=== PATIENT | female | born 1960 | race Caucasian/White ===

== ENCOUNTER 2024-12-11 09:41 | Inpatient (IN) | payer MEDICARE, BC ==
--- NOTE | 2024-12-11 09:55 | ED ---
Fall HPI - General Chief Complaint: Fall Stated Complaint: hip fracture Time Seen by Provider: 12/11/24 09:54 Source: patient, EMS, RN notes reviewed Mode of arrival: EMS - History of Present Illness Initial Comments: 64-year-old female with history of osteoporosis presenting to emergency department via EMS for concerns of left hip pain. States that while she was at work this morning she tripped over her feet causing her to fall onto her left hip. Patient denies hitting her head or loss conscious at the time of the injury. States that she does not remember standing up however has been having severe pain while putting pressure onto the left leg. Denies blood thinner use. States that the pain is currently rated as an 8 out of 10. Denies other injuries at the time of the fall. - Related Data Allergies Allergy/AdvReac Type Severity Reaction Status Date / Time No Known Allergies Allergy Verified 12/11/24 09:54 Review of Systems ROS Statement: Those systems with pertinent positive or pertinent negative responses have been documented in the HPI. ROS Other: All systems not noted in ROS Statement are negative. Past Medical History Past Medical History: COPD Additional Past Medical History / Comment(s): OP Past Surgical History: No Surgical Hx Reported Past Psychological History: No Psychological Hx Reported Smoking Status: Former smoker Past Alcohol Use History: Occasional Past Drug Use History: Marijuana General Exam Limitations: no limitations Eye exam: Present: normal appearance, PERRL, EOMI. Absent: scleral icterus, conjunctival injection, periorbital swelling Neck exam: Present: normal inspection. Absent: tenderness, meningismus, lymphadenopathy Respiratory exam: Present: normal lung sounds bilaterally. Absent: respiratory distress, wheezes, rales, rhonchi, stridor Cardiovascular Exam: Present: regular rate, normal rhythm, normal heart sounds. Absent: systolic murmur, diastolic murmur, rubs, gallop, clicks GI/Abdominal exam: Present: soft, normal bowel sounds. Absent: distended, tenderness, guarding, rebound, rigid Left Hip exam: Present: tenderness. Absent: full ROM, swelling, erythema Neurovascular tendon exam: Present: no vascular compromise Gait: not tested/not observed Back exam: Present: normal inspection Neurological exam: Present: alert, oriented X3, CN II-XII intact Skin exam: Present: warm, dry, intact, normal color. Absent: rash Course Vital Signs 12/11/24 12/11/24 09:43 10:18 Temperature 98.2 F 97.8 F Pulse Rate 56 L 63 Respiratory 18 18 Rate Blood Pressure 158/93 149/79 O2 Sat by Pulse 95 96 Oximetry Medical Decision Making - Medical Decision Making Was pt. sent in by a medical professional or institution (FELIPA Nicolas, GEAR MILLING MACHINE SET UP OPERATOR, urgent care, hospital, or fci...) When possible be specific @ -No Did you speak to anyone other than the patient for history (EMS, parent, family, police, friend...)? What history was obtained from this source @ -No Did you review nursing and triage notes (agree or disagree)? Why? @ -I reviewed and agree with nursing and triage notes Were old charts reviewed (outside hosp., previous admission, EMS record, old EKG, old radiological studies, urgent care reports/EKG's, fci records)? Report findings @ -No old charts were reviewed Differential Diagnosis (chest pain, altered mental status, abdominal pain women, abdominal pain men, vaginal bleeding, weakness, fever, dyspnea, syncope, headache, dizziness, GI bleed, back pain, seizure, CVA, palpatations, mental health, musculoskeletal)? @ -Differential Musculoskeletal Muscular strain, contusion, ligament sprain, fracture, arthritis, septic arthritis, bursitis, cellulitis, muscle spasm, nerve compression, DVT, arterial occlusion, herpes zoster, electrolyte abnormality, tumor.... This is not meant to be in all inclusive list EKG interpreted by me (3pts min.). @ -completed at 1150, sinus bradycardia with a ventricular rate of 55, AL interval 167, QRS 98, QT 470, QTc 460. X-rays interpreted by me (1pt min.). @ -X-ray of the left hip and AP pelvis reveals a displaced intertrochanteric fracture of the left hip Chest x-ray no acute process CT interpreted by me (1pt min.). @ -None done U/S interpreted by me (1pt. min.). @ -None done What testing was considered but not performed or refused? (CT, X-rays, U/S, labs)? Why? @ -None What meds were considered but not given or refused? Why? @ -None Did you discuss the management of the patient with other professionals (professionals i.e. FELIPA Nicolas, GEAR MILLING MACHINE SET UP OPERATOR, lab, RT, psych nurse, home health care social worker, water and sewer systems supervisor, teacher, national insurance officer, protective services case worker)? Give summary @ -Spoke with on-call rn orthopedic, Liu Nolen ([facility]AR), who spoke with his attending was agreed to admit the patient with general medicine consult for surgical clearance. Will plan for surgery tomorrow. Was smoking cessation discussed for >3mins.? @ -No Was critical care preformed (if so, how long)? @ -No Were there social determinants of health that impacted care today? How? (Homelessness, low income, unemployed, alcoholism, drug addiction, transportation, low edu. Level, literacy, decrease access to med. care, residential, rehab)? @ -No Was there de-escalation of care discussed even if they declined (Discuss DNR or withdrawal of care, Hospice)? DNR status @ -No What co-morbidities impacted this encounter? (DM, HTN, Smoking, COPD, CAD, Cancer, CVA, ARF, Chemo, Hep., AIDS, mental health diagnosis, sleep apnea, morbid obesity)? @ -None Was patient admitted / discharged? Hospital course, mention meds given and route, prescriptions, significant lab abnormalities, going to OR and other pertinent info. @ -Admitted. 64-year-old female presenting to emergency department via EMS for complaints of a fall and left hip pain. Unable to assess full range of motion due to patient's pain. Neurovascularly intact of the left lower extremity. Patient evaluate dose of Dilaudid for pain control. X-ray of the left hip and AP pelvis reveals a fracture of the intertrochanteric fracture. Chest x-ray is unremarkable. Patient admitted to orthopedics with general medicine on consult. As needed pain medications ordered. Case has been discussed with my attending Dr. Greene Undiagnosed new problem with uncertain prognosis? @ -No Drug Therapy requiring intensive monitoring for toxicity (Heparin, Nitro, Insulin, Cardizem)? @ -No Were any procedures done? @ -No Diagnosis/symptom? @ -intertrochanteric fracture of left hip Acute, or Chronic, or Acute on Chronic? @ -acute Uncomplicated (without systemic symptoms) or Complicated (systemic symptoms)? @ -uncomplicated Side effects of treatment? @ -No Exacerbation, Progression, or Severe Exacerbation? @ -No Poses a threat to life or bodily function? How? (Chest pain, USA, DC, pneumonia, PE, COPD, DKA, ARF, appy, cholecystitis, CVA, Diverticulitis, Homicidal, Suic idal, threat to staff... and all critical care pts) @ -No Disposition Clinical Impression: Intertrochanteric fracture of left hip Disposition[facility] Condition: Stable Decision to Admit Reason: Admit from EC Decision Date: 12/11/24 Decision Time: 11:20
[2024-12-11] MEDS: HYDROmorphone 0.5 MG/0.5 ML SYRINGE IVP STA (10:15)
--- NOTE | 2024-12-11 10:48 | XR ---
EXAMINATION TYPE: XR chest 1V DATE OF EXAM: 12/11/2024 COMPARISON: NONE CLINICAL INDICATION: Female, 64 years old with history of LEFT HIP FX; TECHNIQUE: Single frontal view of the chest is obtained. FINDINGS: There is no focal air space opacity, pleural effusion, or pneumothorax seen. The cardiac silhouette size is within normal limits. The osseous structures are intact. IMPRESSION: No acute process. [facility], Workstation: [email or web address] 12/11/2024 10:46 AM
--- NOTE | 2024-12-11 10:48 | XR ---
EXAMINATION TYPE: XR Hip LT and AP Pelvis DATE OF EXAM: 12/11/2024 COMPARISON: NONE CLINICAL INDICATION: Female, 64 years old with history of fall, pain; TECHNIQUE: A single AP view of the pelvis is obtained. Two views of the left hip are obtained. FINDINGS: There is a markedly displaced intertrochanteric fracture of the left hip. There is no left hip disloc ation. Right hip is intact. There is no fracture of the pelvis. IMPRESSION: Displaced intertrochanteric fracture of the left hip. [facility], , 12/11/2024 10:46 AM
[2024-12-11] MEDS ORDERED: IBUPROFEN 400 MG TAB PO PRN (11:09)
[2024-12-11] MEDS ORDERED: NALOXONE 0.4 MG/ML 1 ML VIAL IV PRN (11:09)
[2024-12-11] MEDS ORDERED: ACETAMINOPHEN TAB 325 MG TAB PO PRN (11:09)
[2024-12-11] MEDS: KETOROLAC 15 MG/ML 1 ML VIAL IVP STA (11:16)
[2024-12-11] MEDS: SODIUM CHLORIDE 0.9% 1,000 ML IV SCH (11:19)
[2024-12-11 11:54] LABS: Basophils # (A) 0.04 10*3/uL (0.00-0.10); Basophils % (A) 0.4 %; Eosinophils # (A) 0.08 10*3/uL (0.04-0.35); Eosinophils % (A) 0.7 %; HCT 39.2 % (37.2-46.3); HGB 13.3 g/dL (12.0-15.0); Lymphocytes # (A) 1.38 10*3/uL (0.90-5.00); Lymphocytes % (A) 12.5 %; MCH 29.4 pg (27.0-32.0); MCHC 33.9 g/dL (32.0-37.0); MCV 86.5 fL (80.0-97.0); Mean Platelet Volume 9.2 fL (9.5-12.2); Monocytes % (A) 5.4 %; Neutrophils # (A) 8.86 10*3/uL (1.80-7.70); Neutrophils % (A) 80.5 %; Platelet Count 258 10*3/uL (140-440); RBC 4.53 10*6/uL (4.10-5.20); RDW 13.7 % (11.5-14.5); WBC 11.01 10*3/uL (4.50-10.00)
[2024-12-11 12:06] LABS: ALT 33 U/L (4-34); AST 32 U/L (14-36); African American GFR (CKD) >90 (>60 ml/min/1.73 sqM); Albumin 4.1 g/dL (3.5-5.0); Alkaline Phosphatase 66 U/L (38-126); Anion Gap 8 mmol/L; Blood Urea Nitrogen 13 mg/dL (7-17); Calcium 9.2 mg/dL (8.4-10.2); Carbon Dioxide 24 mmol/L (22-30); Chloride 107 mmol/L (98-107); Glucose 131 mg/dL (74-99); Non-African American GFR(CKD) >90 (>60 ml/min/1.73 sqM); Potassium 3.9 mmol/L (3.5-5.1); Sodium 139 mmol/L (137-145); Total Bilirubin 1.4 mg/dL (0.2-1.3); Total Protein 6.6 g/dL (6.3-8.2)
[2024-12-11 12:09] LABS: INR 0.9 (<1.2)
[2024-12-11 12:10] LABS: Prothrombin Time 10.4 sec (10.0-12.5)
--- NOTE | 2024-12-11 12:10 | P.HPOR ---
History of Present Illness H&P Date: 12/11/24 Chief Complaint: Left femur fracture Patient is a 64-year-old female who was brought to [facility] after falling today while at work. Patient fell after tripping over something and landed on her left side. She was unable to weight-bear due to pain in the l eft hip area. Patient was brought to hospital by EMS, she underwent multiple imaging and lab test, images demonstrated a displaced left intertrochanteric femur fracture. Our orthopedic team was contacted regarding the patient. Patient was admitted under our care with plan for surgical intervention, internal medicine was placed on consult for medical management. Patient was evaluated today in the ER, she is resting comfortably. She notes most pain in the left hip with movement. She denies any right lower extremity pain, she denies any bilateral upper extremity pain. She denies any numbness or tingling to the bilateral upper or lower extremities. She denies any loss of bowel or bladder function. She denies any fevers or chills currently. Patient denies any previous surgery to the left hip. Review of Systems Constitutional: Reports as per HPI Past Medical History Past Medical History: COPD Additional Past Medical History / Comment(s): OP Past Surgical History: No Surgical Hx Reported Past Psychological History: No Psychological Hx Reported Smoking Status: Former smoker Past Alcohol Use History: Occasional Past Drug Use History: Marijuana Medications and Allergies Allergies Allergy/AdvReac Type Severity Reaction Status Date / Time No Known Allergies Allergy Verified 12/11/24 09:54 Physical Examination Left lower extremity: Obvious shortening and external rotation of the extremity when compared to the contralateral side No open lesions or sores are visualized, no areas of erythema. Mild ecchymosis and swelling present to the proximal femur Calf is soft, no tenderness with palpation. She is nontender in the lower leg, foot or ankle. She is tender with palpation noted to the proximal femur Range of motion of the hip was very difficult, straight leg raise was unable to be done, logroll maneuver reproduce pain. Knee extension and flexion were intact but do reproduce pain in the hip region. plantarflexion, dorsiflexion, EHL, FHL are intact Sensory exam to light touch is intact throughout the extremity, dorsalis pedis pulses 2+ Results - Labs Labs: Abnormal Lab Results - Last 24 Hours (Table) 12/11/24 12/11/24 Range/Units 11:41 11:41 WBC 11.01 H (4.50-10.00) 10*3/uL MPV 9.2 L (9.5-12.2) fL Immature Gran # 0.05 H (0.00-0.04) 10*3/uL Neutrophils # 8.86 H (1.80-7.70) 10*3/uL Glucose 131 H (74-99) mg/dL Total Bilirubin 1.4 H (0.2-1.3) mg/dL H & H 12/11/24 Range/Units 11:41 Hgb 13.3 (12.0-15.0) g/dL Hct 39.2 (37.2-46.3) % Result Diagrams: 12/11/24 11:41 12/11/24 11:41 - Diagnostic results Hip x-ray: report reviewed, image reviewed (Pelvis and left hip x-rays were reviewed. Displaced left intertrochanteric femur fracture is noted. No other acute osseous abnormalities appreciated) Assessment and Plan Assessment: Displaced left intertrochanteric femur fracture Status post fall from standing Other medical comorbidities Plan: I was able to discuss the case, this to include physical exam findings and imaging studies and my attending Dr. Shafer. We are recommending surgical intervention, more specifically close reduction with intramedullary nailing of the left femur. Planning for surgery for 12/12/2024 Risk and benefits of the procedure were discussed with the patient, this to include but not exclude infection, blood loss, development of blood clot, neurovascular injury, pain and stiffness, inadequate healing of bone/soft tissue, need for subsequent surgery. Patient is in good understanding and would like to proceed. Consent will be obtained prior to procedure N.p.o. after midnight Pain control, oral and IV medication as needed Nonweightbearing left lower extremity at this time PT/OT evaluation after surgery Internal medicine recommendations appreciated Further recommendations to follow Time with Patient: Less than 30
[2024-12-11 12:18] LABS: Partial Thromboplastin Time 21.3 sec (22.0-30.0)
[2024-12-11 13:08] LABS: Appearance,Urine Clear (Clear); Bilirubin,Urine Negative (Negative); Blood,Urine Negative (Negative); Color,Urine Yellow; Glucose,Urine (UA) Negative (Negative); Ketones,Urine 2+ (Negative); Leukocyte Esterase,Urine Negative (Negative); Nitrite,Urine Negative (Negative); PH, Urine 5.5 (5.0-8.0); Protein,Urine Trace (Negative); Specific Gravity,Urine 1.027 (1.001-1.035); Urobilinogen,Urine <2.0 mg/dL (<2.0)
[2024-12-11] MEDS: HYDROmorphone 0.5 MG/0.5 ML SYRINGE IVP PRN (15:45)
[2024-12-11] MEDS: ONDANSETRON 4 MG/2 ML VIAL IVP PRN (16:10)
[2024-12-11] MEDS: HYDROcodone/APAP 7.5-325MG 1 EACH TAB PO PRN (17:03)
[2024-12-11] MEDS: CYCLOBENZAPRINE 10 MG TAB PO PRN (17:03)
[2024-12-11] MEDS ORDERED: ALBUTEROL NEBULIZED 2.5 MG/3 ML INHALATION PRN (17:34)
[2024-12-11] MEDS: amLODIPine 10 MG TAB PO SCH (17:44)
[2024-12-11] MEDS: PANTOPRAZOLE 40 MG TABLET PO SCH (17:44)
--- NOTE | 2024-12-12 02:39 | CONS ---
CONSULTATION REASON FOR CONSULTATION: Preoperative clearance requested by Surgery. HISTORY OF PRESENT ILLNESS: This 64-year-old woman with a past medical history of mild COPD, history of nicotine dependence, being followed by Dr. Zeina Aguilar. The patient apparently had a fall and the patient suffered a displaced left intertrochanteric femur fracture. Surgical intervention planned for tomorrow. There is no history of any fever, rigors, chills at this time. PAST MEDICAL HISTORY: History of COPD, mild. MEDICATIONS: Fosamax. ALLERGIES: None. FAMILY HISTORY: No history of heart disease or strokes in the family. SOCIAL HISTORY: History of occasional alcohol, previous smoking. REVIEW OF SYSTEMS: Fourteen-point review of systems is negative except as mentioned earlier. PHYSICAL EXAMINATION: VITAL SIGNS: Pulse is 52, blood pressure 120/80, respirations 18. HEENT: Conjunctivae normal. NECK: No jugular venous distention. No carotid bruit. CARDIOVASCULAR: S1, S2 muffled. RESPIRATIONS: Breath sounds diminished at the bases. No rhonchi, no crackles. ABDOMEN: Soft, nontender. LEGS: Status post hip fracture. NERVOUS SYSTEM: Nonfocal. LABORATORY DATA: WBC 11. Rest of the labs are noted. ASSESSMENT: 1. Status post fall and left hip fracture. 2. Mild chronic obstructive pulmonary disease. 3. Mild hypertension. 4. Increased random blood sugar. 5. Remote history of nicotine dependence. RECOMMENDATIONS AND DISCUSSION: This 64-year-old woman presented with a fall. At this time, the patient is medically stable, I recommend Norvasc 5 mg p.o. daily and pain management. DVT prophylaxis. We will follow the patient closely with you and I would also recommend p.r.n. inhalers and further recommendations follow. The patient is cleared for surgery. MMODL / IJN: [id number] /
[2024-12-12 09:25] LABS: Basophils # (A) 0.02 X 10*3/uL (0.00-0.10); Basophils % (A) 0.2 %; Eosinophils # (A) 0.13 X 10*3/uL (0.04-0.35); Eosinophils % (A) 1.4 %; HCT 38.5 % (37.2-46.3); HGB 12.1 g/dL (12.0-15.0); Lymphocytes # (A) 1.92 X 10*3/uL (0.90-5.00); Lymphocytes % (A) 20.8 %; MCH 28.3 pg (27.0-32.0); MCHC 31.4 g/dL (32.0-37.0); MCV 90.2 FL (80.0-97.0); Monocytes # (A) 0.73 X 10*3/uL (0.20-1.00); Monocytes % (A) 7.9 %; NRBC Per 100 WBC 0 X 10*3/uL (0.00-0.01); Neutrophils # (A) 6.39 X 10*3/uL (1.80-7.70); Neutrophils % (A) 69.5 %; Platelet Count 259 X 10*3/uL (140-440); RBC 4.27 X 10*6/uL (4.10-5.20); RDW 14.2 % (11.5-14.5); WBC 9.21 X 10*3/uL (4.50-10.00)
[2024-12-12 09:43] LABS: ALT 64 U/L (8-44); AST 55 U/L (13-35); Albumin 3.9 g/dL (3.8-4.9); Albumin/Globulin Ratio 2.05 Ratio (1.60-3.17); Alkaline Phosphatase 68 U/L (41-126); Blood Urea Nitrogen 10.5 mg/dL (9.0-27.0); Calcium 8.8 mg/dL (8.7-10.3); Carbon Dioxide 23.4 mmol/L (21.6-31.8); Chloride 106 mmol/L (96-109); Globulin 1.9 g/dL (1.6-3.3); Glucose 127 mg/dL (70-110); Potassium 4.1 mmol/L (3.5-5.5); Sodium 140 mmol/L (135-145); Total Bilirubin 1.7 mg/dL (0.3-1.2); Total Protein 5.8 g/dL (6.2-8.2)
[2024-12-12] MEDS: IV FLUID CONTINUATION 1,000 ML IV ONE ×2 (09:43→11:32)
[2024-12-12] MEDS ORDERED: PROPOFOL 10 MG/ML 20 ML VIAL IV ONE (10:01)
[2024-12-12] MEDS ORDERED: KETAMINE HCL IN 0.9 % NACL 50 MG/5 ML SYRINGE ONE (10:01)
[2024-12-12] MEDS ORDERED: fentaNYL (PF) 50 MCG/ML 2 ML AMP ONE (10:01)
[2024-12-12] MEDS ORDERED: MIDAZOLAM 2 MG/2 ML VIAL ONE (10:01)
[2024-12-12] MEDS ORDERED: GLYCOPYRROLATE 0.2 MG/ML 2 ML VIAL ONE (10:01)
--- NOTE | 2024-12-12 11:19 | P.OP ---
Date of Procedure: 12/12/24 Preoperative Diagnosis: Left hip displaced intertrochanteric fracture Postoperative Diagnosis: Left hip displaced intertrochanteric fracture Procedure(s) Performed: Intramedullary nailing left hip trochanteric fracture Implants: Synthes 11 mm / 130 degree titanium cannulated TFNA/170 mm, Synthes 95 mm helical blade, Synthes 5.0 locking screw 34 mm Anesthesia: spinal Surgeon: Theo Shafer Test Baker #1: Jurgen Nolen Estimated Blood Loss (ml): 25 Pathology: none sent Condition: stable Disposition: PACU Indications for Procedure: 64-year-old patient who was seen with a displaced left hip intertrochanteric fracture. I discussed intramedullary nailing. Patient was agreeable and consent regarding the procedure was obtained. Operative Findings: See description of procedure Description of Procedure: Patient was taken to the operative suite. She underwent a spinal anesthetic by the department of anesthesia. She was not transferred to the [place] table. She was given preoperative IV antibiotics. The left lower extremity placed in standard longitudinal traction with adduction and internal rotation. The right lower extremity space well-padded well leg mayo. The C-arm was brought to the operative field confirming adequate reduction of the fracture. The C-arm was now pulled back. The left hip and lower extremity were now prepped and draped in a normal sterile orthopedic fashion. I now brought the C-arm back to the operative field. I again confirmed adequate reduction of the fracture both under AP and lateral intraoperative imaging. I made an incision measuring about 4 cm just proximal to the greater trochanter in line with the femur sharply through skin. I dissected down to the IT band and made a partial incision through that as well. I now placed a guidewire along the tip of the greater trochanter and introduced it into the intramedullary canal I confirmed this on AP and lateral intraoperative imaging. I placed a soft tissue protector and reamed out the proximal aspect of the greater trochanter. I now chose a Synthes 11 mm 130 degree angle titanium TF and a 170 mm trochanteric nail. Utilizing the outrigger introduced into the femur and tapped it down appropriately confirming adequate alignment on intraoperative fluoroscopy. I now placed the head neck complex guide through the outrigger made an incision through the skin and placed along the proximal lateral aspect of the femur confirming adequate position on AP and lateral intraoperative imaging. The guidewire was now placed into the head neck complex I again confirmed this under direct fluoroscopy both under AP and lateral intraoperative imaging. I now placed a reamer over the guidewire and then introduced our helical screw tapping it down until it was flush and secure. I locked the screw in position proximally. We now introduced our distal nail screw hole guide main incision through the skin and secured along the lateral aspect of the femur confirmed that on imaging. We drilled through the distal locking screw and introduced a 34 mm 5.0 screw with good fixation noted. The outrigger was now removed. We confirmed good reduction and good placement our fixation of both under AP and lateral intraoperative imaging. The C-arm was pulled back. The wounds were irrigated copiously with saline solution. The proximal IT band was repaired with #1 Vicryl. All incision subcutaneous soft tissues were repaired with 2-0 Vicryl. The skin was repaired with skin jose juan. Sterile dressings were applied. The patient was transferred to a bed in recovery in stable condition. Liu LEO assisted in all aspects of this procedure.
[2024-12-12] MEDS ORDERED: HYDROmorphone 0.5 MG/0.5 ML SYRINGE IVP PRN ×2 (11:20)
[2024-12-12] MEDS ORDERED: NALOXONE 0.4 MG/ML 1 ML VIAL IV PRN (11:20)
--- NOTE | 2024-12-12 11:41 | XR ---
Left hip. HISTORY: Left hip fracture. COMPARISON: 12/11/2024. TECHNIQUE: 56.4 seconds of fluoroscopy and 2 spot films were obtained demonstrating placement of a tr ansfemoral neck screw with intramedullary rianna in the proximal left femur. FINDINGS: Open reduction internal fixation of a left intertrochanteric fracture. There is near anatomic alignme nt. IMPRESSION: Fluoroscopic spot films and fluoroscopy for fixation of a left hip fracture as described above. [facility], Workstation: [id number] 12/12/2024 11:39 AM
--- NOTE | 2024-12-12 11:43 | FL ---
Fluoroscopic guidance operating room. HISTORY: Left hip fracture fixation. COMPARISON: None. Findings and impression: 54.4 seconds of fluoroscopy was provided for fixation of a intertrochanteric fracture of the left hip . [facility], Workstation: [email or web address] 12/12/2024 11:40 AM
[2024-12-12] MEDS: MULTIVITAMINS, THERA 1 EACH TAB PO SCH (12:26)
[2024-12-12 14:38] LABS: Basophils # (A) 0.04 10*3/uL (0.00-0.10); Basophils % (A) 0.4 %; Eosinophils # (A) 0.08 10*3/uL (0.04-0.35); Eosinophils % (A) 0.7 %; HCT 36.2 % (37.2-46.3); HGB 11.6 g/dL (12.0-15.0); Lymphocytes # (A) 1.35 10*3/uL (0.90-5.00); Lymphocytes % (A) 12.1 %; MCH 29.3 pg (27.0-32.0); MCV 91.4 fL (80.0-97.0); Mean Platelet Volume 9.6 fL (9.5-12.2); Monocytes # (A) 0.64 10*3/uL (0.20-1.00); Monocytes % (A) 5.7 %; Neutrophils # (A) 9.02 10*3/uL (1.80-7.70); Neutrophils % (A) 80.7 %; Platelet Count 216 10*3/uL (140-440); RBC 3.96 10*6/uL (4.10-5.20); RDW 14.1 % (11.5-14.5); WBC 11.17 10*3/uL (4.50-10.00)
[2024-12-12] MEDS: ceFAZolin 2 GM in DEXTROSE 5% IN WATER 50 ML IVPB SCH (15:53)
[2024-12-12] MEDS: HYDROmorphone 0.5 MG/0.5 ML SYRINGE IVP PRN (15:54)
[2024-12-12] MEDS: ASPIRIN 81 MG PO SCH (20:57)
[2024-12-12] MEDS: HYDROcodone/APAP 5-325MG 1 EACH TAB PO PRN (20:57)
--- NOTE | 2024-12-13 04:52 | PN ---
PROGRESS NOTE DATE OF SERVICE: 12/12/2024 SUBJECTIVE: This 64-year-old woman, admitted after a fall and left hip fracture, underwent intramedullary nailing of the left hip fracture. There is no history of any fever, rigors, or chills. OBJECTIVE: VITAL SIGNS: Pulse is 68, blood pressure 143/84. CHEST: Clear to auscultation. ABDOMEN: Soft, nontender. LEGS: Status post surgery. LABORATORY DATA: Reviewed. ASSESSMENT: 1. Left hip displaced intertrochanteric fracture, status post intramedullary nailing. 2. Fall. 3. Mild chronic obstructive pulmonary disease. 4. Hypertension. 5. Increased random blood sugar. 6. Remote history of nicotine dependence. RECOMMENDATIONS AND DISCUSSION: Recommend to continue current management. To continue symptomatic treatment. DVT prophylaxis. Closely follow with Orthopedic Surgery. Further recommendations to follow. MMODL / IJN: [id number] /
[2024-12-13] MEDS: hydrOXYzine pamoate 25 MG CAP PO PRN (04:58)
[2024-12-13] MEDS ORDERED: ASPIRIN 81 MG PO SCH (09:00)
--- NOTE | 2024-12-13 12:16 | P.PN ---
Subjective Progress Note Date: 12/13/24 Principal diagnosis: Status post intramedullary nail left hip Patient evaluated at bedside, resting comfortably in her hospital chair. She has been up into the bathroom on a couple occasions. She does have discomfort in the left lower extremity and heaviness when she attempts to lift it. Denies headaches, lightheadedness, chest pain or shortness of breath. She has had no f lizett or chills at this time. Objective - Vital Signs Vital signs: Vital Signs Temp 98.3 F 12/13/24 07:17 Pulse 82 12/13/24 07:17 Resp 16 12/13/24 07:17 BP 124/65 12/13/24 07:17 Pulse Ox 95 12/13/24 09:41 FiO2 Intake & Output 12/12/24 12/13/24 12/13/24 18:59 06:59 18:59 Intake Total 1000 240 Output Total 145 Balance 855 240 Intake: IV 1000 Oral 240 Output: Urine 120 Estimated Blood Loss 25 Other: Voiding Method External Catheter External Catheter Toilet # Voids 2 2 - Exam Left lower extremity: Postop bandages are in good position condition, mild ecchymosis and swelling to the extremity. Calf is soft, no tenderness with palpation. Plantarflexion, dorsiflexion, EHL, FHL are intact. Sensory exam to light touch is intact throughout the extremity, dorsalis pedis pulses 2+ - Labs CBC & Chem 7: 12/12/24 14:17 12/12/24 02:52 Labs: Abnormal Lab Results - Last 24 Hours (Table) 12/12/24 Range/Units 14:17 WBC 11.17 H (4.50-10.00) 10*3/uL RBC 3.96 L (4.10-5.20) 10*6/uL Hgb 11.6 L (12.0-15.0) g/dL Hct 36.2 L (37.2-46.3) % Neutrophils # 9.02 H (1.80-7.70) 10*3/uL Assessment and Plan Assessment: Postop day #1 status post IM nail left intertrochanteric femur fracture Displaced left intertrochanteric femur fracture Status post fall from standing Other medical comorbidities Plan: Pain control, oral and IV medication as needed Weight-bear as tolerated, utilize walker at all time Encourage incentive spirometer PT/OT DVT prophylaxis, continue current medications Internal medicine recommendations appreciated Discharge planning: Planning for discharge to home with home health care on 12/14/2024 Time with Patient: Less than 30
--- NOTE | 2024-12-13 16:07 | PN ---
PROGRESS NOTE DATE OF SERVICE: 12/13/2024 SUBJECTIVE: This 64-year-old woman who was admitted after hip fracture is improving. No chest pain. No palpitation. OBJECTIVE: VITAL SIGNS: Pulse 89, blood pressure 119/64, and respirations 16. CHEST: Clear to auscultation. CARDIOVASCULAR: S1, S2. ABDOMEN: Soft. NERVOUS SYSTEM: Nonfocal LABORATORY DATA: WBC 11.7. The labs are noted. ASSESSMENT: 1. Status post left hip fracture and intramedullary nailing. 2. Fall. 3. Mild chronic obstructive pulmonary disease. 4. Hypertension. 5. Increased random blood sugar. 6. Remote history of nicotine dependence. RECOMMENDATIONS: Recommend to continue current management and symptomatic treatment. Continue with the DVT prophylaxis, pain management. Further recommendations to follow. MMODL / IJN: [id number] /
--- NOTE | 2024-12-14 07:00 | XR ---
EXAMINATION TYPE: XR chest 1V portable DATE OF EXAM: 12/14/2024 CLINICAL INDICATION: Female, 64 years old with history of sob, cough, progress study. TECHNIQUE: Single AP portable upright view of the chest is obtained. COMPARISON: Chest x-ray from 3 days earlier FINDINGS: There is new linear opacity bilateral lower lungs likely reflecting atelectasis. Upper mark gs are clear. Cardiac silhouette size stable and within normal limits. The osseous structures are int act. IMPRESSION: New Bibasilar linear opacities or atelectasis. [facility], , 12/14/2024 6:58 AM
[2024-12-14 07:41] VITALS: BP 103/58; PULSE 78; RESP 17; TEMP 98.2
--- NOTE | 2024-12-14 09:01 | P.PN ---
Subjective Progress Note Date: 12/14/24 Principal diagnosis: Status post intramedullary nail left hip Patient evaluated at bedside, resting comfortably in her hospital chair. Patient is continue to progress well, her pain is well-controlled. She has been urinating with no issues, she is passing gas. Denies headaches, lightheadedness, chest pain or shortness of breath. She has had no fevers or chills at this time. Objective - Vital Signs Vital signs: Vital Signs Temp 98.2 F 12/14/24 07:40 Pulse 78 12/14/24 07:40 Resp 17 12/14/24 07:40 BP 103/58 12/14/24 07:40 Pulse Ox 94 L 12/14/24 07:40 FiO2 Intake & Output 12/13/24 12/14/24 12/14/24 18:59 06:59 18:59 Intake Total 1260 Output Total 600 Balance 660 Intake: Oral 1260 Output: Urine 600 Other: Voiding Method Toilet Toilet # Voids 2 2 - Exam Left lower extremity: Postop bandages are in good position condition, mild ecchymosis and swelling to the extremity. Calf is soft, no tenderness with palpation. Plantarflexion, dorsiflexion, EHL, FHL are intact. Sensory exam to light touch is intact throughout the extremity, dorsalis pedis pulses 2+ - Labs CBC & Chem 7: 12/12/24 14:17 12/12/24 02:52 Assessment and Plan Assessment: Postop day #2 status post IM nail left intertrochanteric femur fracture Displaced left intertrochanteric femur fracture Status post fall from standing Other medical comorbidities Plan: Pain control, plan for discharge home on [place] 7.5 mg / 325 mg Weight-bear as tolerated, utilize walker at all time Encourage incentive spirometer Home health care at discharge DVT prophylaxis, aspirin 81 mg twice a day for 30 days Internal medicine recommendations appreciated Discharge planning: Stable for discharge home today Time with Patient: Less than 30
--- NOTE | 2024-12-14 09:02 | P.DS ---
Providers Date of admission: 12/11/24 11:08 Expected date of discharge: 12/14/24 Attending physician: Theo Shafer Consults: 12/11/24 11:09 Consult Physician Routine Consulting Provider: Elisha Hu Consult Reason/Comments: medical clearance Do you want consulting provider notified?: Yes Primary care physician: Zeina Aguilar Hospital Course: Date of admission: 12/11/2024 Date of discharge: 12/14/2024 Admission diagnosis: Displaced left intertrochanteric femur fracture Discharge diagnosis: Status post IM nail left intertrochanteric femur fracture Attending physician: Dr. Shafer Surgical procedures: Intramedullary nail left femur fracture Brief history: Patient is a 64-year-old with a history of a fall resulting in a displaced left intertrochanteric femur fracture. At this point patient has failed conservative treatment measures and has opted to proceed with a elective intramedullary nail left femur fracture. Hospital course: Details of patient's surgery can be found in operative report. Patient tolerated the procedure well and was subsequently transported to orthopedic floor. Patient's orthopeidc and medical care was provided daily. Patient had daily laboratory tests performed for evaluation of overall blood counts. Patient had daily physical therapy to include strengthening range of motion as well as education with walker ambulation. Patient was treated with as for their postoperative DVT prophylaxis during their inpatient stay. Patient was noted to have a relatively uneventful postoperative course. Patient reported satisfactory pain control with oral pain medications by postoperative day 1. Patient showed satisfactory progress with physical therapy. Patient moved steadily through the program and had no difficulty meeting the goals by postoperative day 2. Given patient's otherwise satisfactory course and having met physical therapy goals, plan is to discharge patient home on postoperative day 2. Discharge condition/disposition: Patient will be discharged home in stable condition. Discharge medications: Instructions are given on resumption of patient's normal daily medications per primary care recommendation, in addition patient will be prescribed [place] 7.5 mg / 325 mg, Flexeril 10 mg, senna S, aspirin 81 mg. Discharge instructions: 1. Wound care and infection precautions, keep incision dry and covered while showering, no lotions, creams, moisturizers. No soaking, tubs, pools, hottubs. Do not scrub over the incision. 2. Weight-bear as tolerated with walker / cane until follow-up. 3. Ice and elevate when necessary. Do not exceed 20 minutes per hour with ice pack. 4. Utilize compression sleeve until seen at first follow up appointment. 5. Visiting nursing care. 6. Home physical therapy. 7. Pain meds and anticoagulants per prescription. 8. Pain medication has potential to cause constipation. Increase oral fluid and fiber intake. Contact primary care provider if you have not had a bowel movement within 48 hours after discharge 9. No anti-inflammatory medication until discussed at first post operative visit, this including Motrin, Aleve, Mobic, Diclofenac. 10. Follow up in office at 2 weeks postop with Liu Nolen PA-C/Curt Hdz 11. Follow up with your primary care doctor 7-10 days after discharge. 12. Contact [facility] with any questions, . Procedures: Left intramedullary nail Patient Condition at Discharge: Stable Plan - Discharge Summary Discharge Rx Participant: No New Discharge Prescriptions: New Aspirin [Adult Low Dose Aspirin EC] 81 mg PO BID #60 tab Cyclobenzaprine [Flexeril] 10 mg PO BID PRN #30 tab PRN Reason: Muscle Spasm HYDROcodone/APAP 7.5-325MG [[place] 7.5] 1 each PO Q6HR PRN #28 tab PRN Reason: Pain Sennosides/Docusate Sodium [Senna-S 8.6-50 mg Tablet] 2 each PO DAILY PRN #30 tablet PRN Reason: Constipation No Action Alendronate Sodium [Fosamax] 70 mg PO Discharge Medication List Alendronate Sodium [Fosamax] 70 mg PO 12/11/24 [History] Aspirin [Adult Low Dose Aspirin EC] 81 mg PO BID #60 tab 12/14/24 [Rx] Cyclobenzaprine [Flexeril] 10 mg PO BID PRN #30 tab 12/14/24 [Rx] HYDROcodone/APAP 7.5-325MG [[place] 7.5] 1 each PO Q6HR PRN #28 tab 12/14/24 [Rx] Sennosides/Docusate Sodium [Senna-S 8.6-50 mg Tablet] 2 each PO DAILY PRN #30 tablet 12/14/24 [Rx] Follow up Appointment(s)/Referral(s): Katharine Feliz [NON-STAFF] - As Needed Zeina Aguilar DO [Primary Care Provider] - 12/16/24 4:00 pm Jurgen Nolen PAC [PHYSICIAN TEA ROOM MANAGER] - 12/29/24 2:10 pm Activity/Diet/Wound Care/Special Instructions: Orthopedic Discharge Instructions: 1. Wound care and infection precautions, keep incision dry and covered while showering, no lotions, creams, moisturizers. No soaking, pools, hot tubs. Do not scrub over incision. 2. Weight-bear as tolerated with walker / cane until follow-up. 3. Ice and elevate when necessary. Do not exceed 20 minutes per hour with ice pack. 4. Utilize compression sleeve until seen at first follow up appointment. 5. Pain meds and anticoagulants per prescription. 6. Pain medication has potential to cause constipation. Increase oral fluid and fiber intake. Contact primary care provider if you have not had a bowel movement within 48 hours after discharge. 7. No anti-inflammatory medication until discussed at first post operative visit, this including Motrin, Aleve, Mobic, Diclofenac. 8. Follow up in office at 2 weeks postop with Liu Nolen PA-C/Curt Freeman PA-C 9. Follow up with your primary care doctor 7-10 days after discharge. 10. Contact [facility] with any questions, . Discharge Disposition: HOME WITH HOME HEALTH SERVICES
[2024-12-14 11:31] LABS: Basophils # (A) 0.02 10*3/uL (0.00-0.10); Basophils % (A) 0.2 %; HCT 33.9 % (37.2-46.3); HGB 11.1 g/dL (12.0-15.0); Lymphocytes # (A) 1.56 10*3/uL (0.90-5.00); MCH 29.3 pg (27.0-32.0); MCHC 32.7 g/dL (32.0-37.0); MCV 89.4 fL (80.0-97.0); Mean Platelet Volume 9.6 fL (9.5-12.2); Monocytes # (A) 0.79 10*3/uL (0.20-1.00); Monocytes % (A) 8.1 %; Neutrophils # (A) 7.26 10*3/uL (1.80-7.70); Neutrophils % (A) 74.3 %; Platelet Count 265 10*3/uL (140-440); RBC 3.79 10*6/uL (4.10-5.20); RDW 13.9 % (11.5-14.5); WBC 9.77 10*3/uL (4.50-10.00)
[2024-12-14 14:58] LABS: Influenza A Not Detected (Not Detectd); Influenza B Not Detected (Not Detectd); RSV Not Detected (Not Detectd)
== END 2024-12-14 11:28 | disposition home health service (06) | DRG 482 ==
LOC: EC 09:41 → 4SSUR 11:08
PROVIDERS: ADMIT Orthopaedic Surgery; ATTEND Orthopaedic Surgery
PROC: 0QS736Z Reposition Left Upper Femur with Intramedullary Internal Fixation Device, Percutaneous Approach (ICD-10-PCS; principal; 2024-12-12 09:30)
DX: S72.142A Displaced intertrochanteric fracture of left femur, initial encounter for closed fracture (principal); I10 Essential (primary) hypertension; J44.9 Chronic obstructive pulmonary disease, unspecified; W01.0XXA Fall on same level from slipping, tripping and stumbling without subsequent striking against object, initial encounter; Y92.9 Unspecified place or not applicable; Y99.0 Civilian activity done for income or pay; M81.0 Age-related osteoporosis without current pathological fracture; Z87.891 Personal history of nicotine dependence; R73.02 Impaired glucose tolerance (oral); Z79.899 Other long term (current) drug therapy
CPT/HCPCS: 71045; 73502; 80053; 81003; 85025; 85610; 85730; 87636; 93005; 94760; 96361; 96374; 96375; 96376; 99285